=== PATIENT | female | born 1980 | race Caucasian/White ===

== ENCOUNTER 2023-05-28 00:56 | Observation (INO) | payer MEDICAID, SELFPAY ==
[2023-05-28] VITALS (10 sets, daily range): BP systolic 89–116; BP diastolic 50–78; PULSE 73–91; RESP 16–18; TEMP 36.2–36.8; O2SAT 91–99; BMI 18.3; BMI 25.2
[2023-05-28] MEDS: sodium chloride 0.9% 1,000 ML 125 ML IV ×2 (01:26→09:32)
[2023-05-28] MEDS: piperacillin-tazobactam 3.375 GM in sodium chloride 0.9% (plus) 50 ML IV (01:26)
[2023-05-28] MEDS: scopolamine 1.5 Patch 1 PATCH TRANSDERMA (10:55)
[2023-05-28] MEDS: sodium chloride 0.9% 1,000 ML 30 ML IV (10:58)
[2023-05-28] MEDS: ondansetron 2 mg/ML SDV 2 mL 4 MG IVP (11:03)
--- NOTE | 2023-05-28 11:04 | ANES.PREANE2 ---
Pre-Anesthetic Assessment Height/Weight: Height 1.5 m Weight 56.699 kg Temp Pulse Resp BP Pulse Ox O2 Del Method 97.4 F L 76 16 96/59 97 Room Air 05/28/23 07:20 05/28/23 07:20 05/28/23 07:20 05/28/23 07:20 05/28/23 07:20 05/28/23 07:20 Operation Date: 05/28/23 11:30 Proposed Procedures p Laparoscopic Appendectomy(Not Applicable) - Jasper Colmenares DO Familial anesthetic complications: none Was Beta Jose taken within 24 hours: N/A Was Clonidine taken within 24 hours: N/A Last intake: Intake Last Liquid Date 05/27/23 Last Liquid Time 15:00 Last Solid Date 05/27/23 Last Solid Time 13:00 Social No alcohol and No tobacco Exam alert, oriented x 3, clear to auscultation bilaterally and regular rate & rhythm Airway Submandibular: within normal limits Cervical ROM: within normal limits Mallampati: Class II Dentition: chipped History/ROS No significant history except as noted Anesthetic Plan ASA status: 1 Anesthesia: General (Mod RSI) Medications/Allergies Home Medications Medication Instructions Recorded Confirmed Last Taken Type No Known Home Medications 05/28/23 05/28/23 Unknown History Allergies Allergy/AdvReac Type Severity Reaction Status Date / Time No Known Drug Allergies Allergy Unknown Verified 05/28/23 01:09 Current Medications Generic Name Dose Route Start Last Admin Trade Name Freq PRN Reason Stop Dose Admin Piperacillin Sod/Tazobactam 50 mls @ 12.5 mls/hr 05/28/23 02:00 05/28/23 10:23 Sod 3.375 gm/ Sodium Chloride IV Not Given Q8H RACIEL Protocol Sodium Chloride 1,000 mls @ 125 mls/hr 05/28/23 01:00 05/28/23 09:32 Sodium Chloride 0.9% IV 125 mls/hr .Q8H RACIEL Administration Sodium Chloride 1,000 mls @ 30 mls/hr 05/28/23 10:30 05/28/23 10:58 Sodium Chloride 0.9% IV 05/29/23 10:29 30 mls/hr .Q24H RACIEL Administration Data Anesthesia Cardiac Studies: No Data to Display
--- NOTE | 2023-05-28 11:14 | PM.HP ---
Providers/Chief Complaint Admitting Physician: Jasper Colmenares DO Chief Complaint: appendicitis History of Present Illness Ghada Escoto is a 43 year old female who presents to an outside hospital with a 1 day history of right lower quadrant abdominal pain. She does endorse nausea and vomiting but denies any hematemesis. She denies any fever or chills. The pain is sharp and constant located in the right lower quadrant pain does not radiate. Palpation makes pain worse. Nothing makes pain better. CT shows acute appendicitis. Review of Systems General: Reports: 10 or more systems reviewed and unremarkable except in HPI and below Medications/Allergies Home Medications Medication Instructions Recorded Confirmed Last Taken Type No Known Home Medications 05/28/23 05/28/23 Unknown History Allergies Allergy/AdvReac Type Severity Reaction Status Date / Time No Known Drug Allergies Allergy Unknown Verified 05/28/23 01:09 Vitals/I&O/Wt Last Vital Signs Temp 97.4 F L 05/28/23 07:20 Pulse 76 05/28/23 07:20 Resp 16 05/28/23 07:20 BP 96/59 05/28/23 07:20 Pulse Ox 97 05/28/23 07:20 O2 Del Method Room Air 05/28/23 07:20 05/27/23 05/28/23 05/28/23 22:59 06:59 14:59 Intake Total 50 / 50 1000 / 1000 Balance 50 / 50 1000 / 1000 Weight last 48 hrs Weight 125 lb Weight 131 lb 9.6 oz Weight 131 lb 9.6 oz Physical Exam Narrative: General : Patient is well developed , no acute distress, oriented x3 Head : Normal cephalic, a-traumatic. Ears : Pinnae and external canal are normal. Hearing is normal. Eyes : PERRLA, Sclera and injection are normal. No conjunctival discharge. Nose : Mucous membranes are without erythema. Throat : buccal mucosa is normal, gums are without significant recession or hypertrophy. Lungs : Equal chest rise bilaterally, no use of accessory muscles, trachea is midline. Cor : Rate and rhythm are normal. Abdomen : Soft, ND, tender to palpation right lower quadrant, negative Rovsing's, no g/r/m Extremities : No edema, no cyanosis or clubbing, dorsalis pedis pulses are present bilaterally, non-tender to palpation of calves. Upper extremities are normal bilaterally. Back : non-tender to palpation, no CVA tenderness. Neuro : CN II - XII intact, Upper and lower extremities have equal and full strength A&P Assessment and plan (1) Acute appendicitis: Plan Laparoscopic Appendectomy The risks and benefits of the procedure, including but not limited to, bleeding, infection, scar, numbness, pain, damage to surrounding structures, conversion to an open procedure, were explained to the patient. He is understanding of the risks and wishes to proceed. Attestations Medical Necessity Statement*: How long the patient stays depends on intraoperative results Coding Level of Care Code 94579 Diagnoses Acute appendicitis K35.80
--- NOTE | 2023-05-28 11:52 | P.OP_ITS ---
Operative Report Date of procedure: May 28, 2023 Pre-op diagnosis: Acute appendicitis Post-op diagnosis: Mild acute appendicitis Procedure done: Laparoscopic appendectomy Implants: None Specimens removed/disposition: Appendix Surgeon: Jasper Colmenares DO Anesthesia: General Estimated blood loss (mL): 5 Complications: None apparent Brief History: This very pleasant 43-year-old female who came from an outside facility with a CT diagnosis of acute appendicitis. Laparoscopic appendectomy was indicated. The risk benefits were explained and documented. Procedure: Patient was wheeled into the operative room and placed on the OR table in a supine position. Abdomen was inspected prepped and draped in usual sterile fashion. Time-out was performed and all present were in agreement. A 15 blade scalp was used to make a stab incision in the left upper quadrant and intra- abdominal insufflation was achieved using a Veress needle. After localizing the tissue incisions were made and a 12 millimeter trocar was placed into the umbilicus as well as a 5mm in the right lower quadrant and a 5 mm in the left lower quadrant . The appendix was identified and was mildly inflamed. I used the Voyant to ligate the mesoappendix at the base. I then used 2 PDS endo-loops to snare the base of the appendix. I then used the Voyant to ligate the appendix distally. The appendix was removed from the abdomen using an Endo- Catch bag through the umbilical incision. I examined the abdomen and no further pathology was identified. Hemostasis was noted. I then closed the umbilical site with a Bernardo-Daphnie and 0 Vicryl suture in a figure of 8 fashion. All ports removed. Skin was washed and dried. Incisions were closed with 4 O Vicryl in a subcuticular interrupted fashion. Skin glue was applied. Patient tolerated the procedure well.
--- NOTE | 2023-05-28 11:55 | P.DS_ITS ---
Discharge Providers Date of Admission: 05/28/23 00:56 Date of Discharge: May 28, 2023 Attending Provider at Admission: Jasper Colmenares DO Attending Provider at Discharge: Jasper Colmenares DO Diagnoses at Discharge Discharge Diagnosis (1) Acute appendicitis: Status: Acute Reason for Visit Reason for Visit: appendicitis Hospital Course Hospital Course This is a very pleasant 43-year-old female who presents to the hospital from an outside facility with CT diagnosis of acute appendicitis. She underwent laparoscopic appendectomy and a mildly inflamed appendix was removed. She did well postoperatively and was discharged home in good condition Physical Exam Narrative: General : Patient is well developed , no acute distress, oriented x3 Head : Normal cephalic, a-traumatic. Ears : Pinnae and external canal are normal. Hearing is normal. Eyes : PERRLA, Sclera and injection are normal. No conjunctival discharge. Nose : Mucous membranes are without erythema. Throat : buccal mucosa is normal, gums are without significant recession or hypertrophy. Lungs : Equal chest rise bilaterally, no use of accessory muscles, trachea is midline. Cor : Rate and rhythm are normal. Abdomen : Soft, ND, appropriately tender, no g/r/m Extremities : No edema, no cyanosis or clubbing, dorsalis pedis pulses are present bilaterally, non-tender to palpation of calves. Upper extremities are normal bilaterally. Back : non-tender to palpation, no CVA tenderness. Neuro : CN II - XII intact, Upper and lower extremities have equal and full strength Discharge Data Procedures Performed Laparoscopic appendectomy Vitals Last Vital Signs Temp 97.4 F L 05/28/23 07:20 Pulse 76 05/28/23 07:20 Resp 16 05/28/23 07:20 BP 96/59 05/28/23 07:20 Pulse Ox 97 05/28/23 07:20 O2 Del Method Room Air 05/28/23 07:20 Discharge Plan Discharge Patient Disposition: Home Condition: Stable Prescriptions: New hydrocodone-acetaminophen 10-325 mg tablet 1 tab PO Q6H PRN (Reason: pain) Qty: 20 0RF Rx Instructions: May take half of a tab at a time DOK 100 mg capsule 100 mg PO BID Qty: 14 0RF amoxicillin-pot clavulanate 875-125 mg tablet 1 tab PO BID Qty: 14 0RF Discharge Orders: Discharge Order (Routine); Ordered 05/28/23 Ordered By: Jasper Colmenares Referrals: Pippa Oconnor NP at [facility] [Other] - 06/02/23 11:20 am (Follow up with ROJAS Das to establish care: Appointment 06/02/23 at 11:20Am. Please show up 15 minutes early to fill out paperwork. ) Discharge Diet: Advance as tolerated Discharge Activity: Resume usual activity Patient Instructions: Opioid Safety, Post Anesthesia Care Activity Restrictions/Additional Instructions: Do not soak incisions underwater for 2 weeks. Shower daily. Discharge Attestations Time Spent in Discharge Care*: less than 30 min Quality Metrics Clinical Quality Measures [ No reported AMI, CVA or VTE this stay] Coding Level of Care Code Acute Code for Chg Fwd Diagnoses Acute appendicitis K35.80
[2023-05-28] MEDS: lidocaine-epi 2% 20 mL INJ 3 ML INJECTION (11:59)
[2023-05-28] MEDS: HYDROmorphone 1 mg/mL INJ 1 mL IVP (12:57)
--- NOTE | 2023-05-28 16:40 | ANE.PACU2 ---
Inpatient post-anesthesia follow up: Airway intact: Yes Vital signs: Temperature 97.9 F Pulse Rate 77 Respiratory Rate 18 Blood Pressure 116/78 Pulse Oximetry 98 Oxygen Delivery Me thod Room Air Oxygen Flow Rate 6 Fraction of Inspir ed Oxygen Hydration adequate: Yes Nausea and vomiting: No Pain level: 3 Mental status: Baseline
== END 2023-05-28 15:45 | disposition home or self-care (01) ==
PROVIDERS: Admitting Provider Surgery; Visit Provider Surgery
PROC: 0DTJ4ZZ Resection of Appendix, Percutaneous Endoscopic Approach (ICD-10-PCS; CPT 44970; principal; 2023-05-28 11:30)
DX: K35.80 Unspecified acute appendicitis (principal)
CPT/HCPCS: 44970; 88304; G0378; G0379; J1100; J1170; J1885; J2250; J2405; J2543; J2704; J2710; J3010; J3490; J7030